=== PATIENT | male | born 1935 | race Caucasian/White ===

== ENCOUNTER 2018-05-24 10:00 | Day surgery (SDC) | payer OTHER ==
[~2018-05-24] VITALS: Ht 167.6 cm; Wt 89.4 kg
[~2018-05-24 10:00] MED LIST: CEFAZOLIN 1 GM IVPB PREMIX 50 ML IV ONE
[2018-05-24] MEDS ORDERED: LR 1,000 ML IV SCH (13:24)
[2018-05-24] MEDS ORDERED: MORPHINE 4 MG/ML INJ. SYRINGE IVP PRN ×3 (13:30)
[2018-05-24] MEDS ORDERED: HYDROmorphone 1 MG INJ. 1 MG/ML AMPUL IVP PRN (14:00)
[2018-05-24] MEDS ORDERED: HYDROcodone/ACETAMIN 5-325 MG TAB (NORCO/ VICODIN) PO PRN ×2 (14:00)
[2018-05-24 15:03] VITALS: BP_SYST 114
[2018-05-24] MEDS ORDERED: D5/0.45 NS 1,000 ML IV SCH (16:15)
== END 2018-05-24 19:15 | disposition home or self-care (01) ==
LOC: SMU 10:00 → SDS 10:00
PROVIDERS: ATTEND Colon & Rectal Surgery
DX: C44.520 Squamous cell carcinoma of anal skin (principal); K61.39 Other ischiorectal abscess; I48.0 Paroxysmal atrial fibrillation; I73.9 Peripheral vascular disease, unspecified; I47.1 Supraventricular tachycardia; D69.6 Thrombocytopenia, unspecified; J06.9 Acute upper respiratory infection, unspecified; Z68.32 Body mass index [BMI] 32.0-32.9, adult; Z79.899 Other long term (current) drug therapy; Z90.49 Acquired absence of other specified parts of digestive tract; Z87.891 Personal history of nicotine dependence; I25.10 Atherosclerotic heart disease of native coronary artery without angina pectoris; E66.01 Morbid (severe) obesity due to excess calories; I12.9 Hypertensive chronic kidney disease with stage 1 through stage 4 chronic kidney disease, or unspecified chronic kidney disease; E11.22 Type 2 diabetes mellitus with diabetic chronic kidney disease; N18.3 Chronic kidney disease, stage 3 (moderate)
CPT/HCPCS: 46040; 46999; 87070; 88305; J0690; J7120

== ENCOUNTER 2018-06-26 15:46 | Emergency (ER) | payer OTHER ==
[~2018-06-26] VITALS: Ht 170.2 cm; Wt 88.5 kg
[2018-06-26 15:55] VITALS: BP_SYST 118
--- NOTE | 2018-06-26 15:55 | NUR ---
Placed in room 01 . Placed on phototypesetting equipment monitor, blood pressure machine and pulse oximeter. To gown for exam. Side rails up.
[2018-06-26] MEDS ORDERED: NACL 0.9% 1,000 ML IV ONE (15:56)
[2018-06-26] MEDS ORDERED: ONDANSETRON HCL 4 MG/2 ML VIAL IVP ONE (16:00)
[2018-06-26] MEDS ORDERED: NS 1000 ML IV.SOLN IV ONE (16:00)
[2018-06-26] MEDS ORDERED: GENTAMICIN 120 mg/100 mL NS 100 ML IV ONE (16:00)
[2018-06-26] MEDS ORDERED: CLINDAMYCIN 900 mg/50mL D5W 50 ML IV ONE (16:00)
--- NOTE | 2018-06-26 16:00 | NUR ---
Pt presents to ED c/o rectal pain. Per family, pt is more altered than normal and weak. Per family, pt's appetite is decreased. No known modifying factors. Otherwise no fever, chills, diarrhea, nausea, vomiting, or urinary symptoms.
--- NOTE | 2018-06-26 16:05 | NUR ---
ER Dr. Landers at bedside examining patient.
--- NOTE | 2018-06-26 16:30 | NUR ---
Patient transported to radiology via gurney, accompanied by rad staff.
[2018-06-26 16:46] LABS: HEMATOCRIT 36.8 % (36-54); MEAN CORPUSCULAR HEMOGLOBIN 28 pg (27-31); MEAN CORPUSCULAR HGB CONC 33 % (32-36); MEAN CORPUSCULAR VOLUME 87 fL (79.0-98.0); PLATELET COUNT (AUTO) 417 K/uL (130-430); RED BLOOD CELL COUNT(AUTO) 4.24 MIL/uL (4.2-6.2); RED CELL DISTRIBUTION WIDTH 14.8 % (9.0-15.0)
[2018-06-26 16:48] LABS: ANION GAP 9 (5-15); CALCIUM 10.5 mg/dL (8.4-11.0); CHLORIDE 95 mmol/L (98-107); CREATININE 1.53 mg/dL (0.55-1.30); GLUCOSE 110 mg/dL (70-99); INR 1.4 (0.80-1.20); PROTHROMBIN TIME 14.1 SECS (9.5-12.5); SODIUM SERUM 133 mmol/L (136-145); UREA NITROGEN, BLOOD 14 mg/dL (8-21)
--- NOTE | 2018-06-26 16:48 | NUR ---
Returned from radiology, back to [facility].
[2018-06-26 16:50] LABS: WHITE BLOOD COUNT (AUTO) 39.8 K/uL (4.8-10.8)
[2018-06-26 16:57] LABS: ALANINE AMINOTRANSFERASE 67 U/L (12-78); AMYLASE 29 U/L (0-100); ASPARTATE AMINOTRANSFERASE 56 U/L (10-37); BAND % (MANUAL) 5 % (0-6); BASOPHILS % (MANUAL) 0 % (0-2); EOSINOPHILS % (MANUAL) 0 % (0-7); LIPASE 87 U/L (73-393); LYMPHOCYTES % (MANUAL) 3 % (20-46); MONOCYTES % (MANUAL) 4 % (0-11)
[2018-06-26 16:58] LABS: ALCOHOL, BLOOD < 3 mg/dL (<10)
[2018-06-26 16:59] LABS: ACETAMINOPHEN < 1 ug/mL (1-30)
[2018-06-26] MEDS ORDERED: AMIO200T3 PO (17:13)
[2018-06-26] MEDS ORDERED: LIP20 PO (17:13)
[2018-06-26] MEDS ORDERED: LISI10TA5 PO (17:13)
[2018-06-26] MEDS ORDERED: NOR10 PO (17:13)
--- NOTE | 2018-06-26 18:53 | NUR ---
Dr. Garcia at bedside examining pt.
--- NOTE | 2018-06-26 18:55 | NUR ---
Dr. Garcia speaking with Dr. Landers informing him to contact Dr. Collado who did pt's outpatient surgery 2 weeks ago.
--- NOTE | 2018-06-26 19:20 | NUR ---
Note john in EDM - 06/26/18 at 1932 by [id number] Patient will be admitted to care of Dr. Carroll. Admitted to tele unit. Will go to room 130a. Belongings list completed. Summary report printed. Report will be given at bedside.
--- NOTE | 2018-06-26 19:57 | NUR ---
End of life care decisions discussed with patient and daughter in law by Dr. Harris. Opportunity for questions and concerns addressed. Patient's code status is DNR: comfort measures only/palliative care paperwork completed and placed in chart.
[2018-06-26 20:05] LABS: BILIRUBIN,URINE NEGATIVE (NEGATIVE); BLOOD, URINE NEGATIVE (NEGATIVE); CLARITY/URINE CLEAR (CLEAR); COLOR,URINE YELLOW (YELLOW); GLUCOSE,URINE NEGATIVE (NEGATIVE); KETONES,URINE NEGATIVE (NEGATIVE); LEUKOCYTE ESTERASE ,URINE NEGATIVE (NEGATIVE); NITRITE, URINE NEGATIVE (NEGATIVE); PROTEIN URINE TRACE (NEGATIVE); UROBILINOGEN,URINE 0.2 (0.2-1.0)
[2018-06-26 20:10] LABS: BACTERIA,URINE FEW /HPF (None Seen); RBC,URINE 0-3 /HPF (0-3)
[2018-06-26 20:14] LABS: BARBITURATE, URINE NEGATIVE (NEG <=200); BENZODIAZEPINE, URINE NEGATIVE (NEG <=150); COCAINE, URINE NEGATIVE (NEG <=150); METHAMPHETAMINES SCREEN,URINE NEGATIVE (NEG <=500); URINE AMPHETAMINE NEGATIVE (NEG <=500); URINE METHADONE NEGATIVE (NEG <=200)
[2018-06-26 20:15] LABS: CANNABINOID, URINE NEGATIVE (NEG <=50); OPIATE, URINE NEGATIVE (NEG <=100); PHENCYCLIDINE SCREEN,URINE NEGATIVE (NEG <=25); UR TRICYCLIC ANTIDEPRESSANTS NEGATIVE (NEG <=300); URINE OXYCODONE SCREEN NEGATIVE (NEG <=100); URINE PROPOXYPHENE SCREEN NEGATIVE (NEG <=300)
--- NOTE | 2018-06-26 21:17 | NUR ---
Dr. Yañez here in ED looking into pt and case. We are still looking for surgeon to accept. Have placed a call in with outpatient case manager to find another physician to do the surgery, Dr. Garcia refused.
[2018-06-26] MEDS ORDERED: LR 1,000 ML IV ONE (23:00)
[2018-06-26] MEDS ORDERED: VANCOMYCIN HCL 1,000 MG in NS 250 ML IV ONE (23:00)
[2018-06-26] MEDS ORDERED: PIPERACILLIN/TAZO 3.375 GM in NS 50 ML IV ONE (23:00)
[2018-06-26] MEDS ORDERED: PIPERACILLIN/TAZOBACTAM 3.375 GM/VIAL (ZOSYN) IV ONE (23:02)
[2018-06-26] MEDS ORDERED: VANCOMYCIN HCL 1000 MG/VIAL IV ONE (23:03)
--- NOTE | 2018-06-26 23:04 | NUR ---
# 20 gauge angiocath placed to right forearm. Use of asceptic technique. Opsite placed over site. Blood return noted. Flushed with 10 cc of normal saline. No evidence of infiltration noted. Patient tolerated well.
--- NOTE | 2018-06-26 23:10 | NUR ---
Medications were given, pt tolerated well. No adverse reaction, will continue to monitor.
--- NOTE | 2018-06-27 00:16 | NUR ---
Pt resting comfortably in hospital bed. No acute distress, will continue to monitor.
--- NOTE | 2018-06-27 01:56 | NUR ---
[employer] arrived.
[2018-06-27 02:04] VITALS: BP_SYST 135
--- NOTE | 2018-06-27 02:04 | NUR ---
Patient to be transferred to [facility]. Is being transferred due to higher level of care. Receiving facility has accepting physician and available space. ER physician has signed transfer form. Patient or responsible libertarian has agreed to transfer and signed form. Patient belongings inventoried and will be sent with patient. Copy of nursing notes, lab reports, EKG, Physicians Orders and X-rays to be sent with patient. Report called to Juan at receiving facility. Receiving physician is Dr. Horan. [facility] [place].
== END 2018-06-27 02:04 | disposition short-term general hospital (02) ==
LOC: SED 15:46
DX: A41.9 Sepsis, unspecified organism (principal); C20 Malignant neoplasm of rectum; M72.6 Necrotizing fasciitis; R41.82 Altered mental status, unspecified; E87.1 Hypo-osmolality and hyponatremia; I24.9 Acute ischemic heart disease, unspecified; I48.91 Unspecified atrial fibrillation; Z79.899 Other long term (current) drug therapy
CPT/HCPCS: 36415; 71045; 74176; 80053; 80307; 81000; 82150; 82550; 83605; 83690; 84484; 85007; 85027; 85610; 85730; 87040; 93005; 96365; 96366; 96367; 99291; 99292; G0480; G0481; G0482; J1580; J2543; J3370; J3490; J7030; J7120; 99285; J2405